=== PATIENT | male | born 1950 | race Caucasian/White ===

== ENCOUNTER 2023-05-06 21:49 | Emergency (ER) | payer MEDICARE ==
--- NOTE | 2023-05-06 22:15 | ED ---
Abdominal Pain HPI - General Source: RN notes reviewed <Matilde Lim - Last Filed: 05/06/23 22:14> <Shon Prater - Last Filed: 05/07/23 01:26> - General Stated Complaint: Gallbladder Pain Time Seen by Provider: 05/06/23 22:14 - History of Present Illness Initial Comments: Patient is 73-year-old male who presents the emergency department for abdominal pain. Patient reports pain in his right upper abdomen with radiation to the back. He feels nauseous and has had chills. Patient reports similar episode 5 years ago he thinks was related to his gallbladder but did not have medical e valuation (Matilde Lim) Review of Systems ROS Other: All systems not noted in ROS Statement are negative. <Matilde Lim - Last Filed: 05/06/23 22:14> ROS Other: All systems not noted in ROS Statement are negative. <Shon Prater - Last Filed: 05/07/23 01:26> ROS Statement: Those systems with pertinent positive or pertinent negative responses have been documented in the HPI. General Exam <Matilde Lim - Last Filed: 05/06/23 22:14> - General Exam Comments Initial Comments: Visual Physical Exam Vital signs reviewed General: Well-appearing, nontoxic, no acute distress. Head: Normocephalic, atraumatic Eyes: PERRLA, EOMI ENT: Airway patent Chest: Nonlabored breathing Skin: No visual rash, normal skin tone Neuro: Alert and oriented 3 Musculoskeletal: No gross abnormalities (Matilde Lim) Course Vital Signs 05/06/23 22:11 Temperature 98.7 F Pulse Rate 56 L Respiratory 18 Rate Blood Pressure 136/81 O2 Sat by Pulse 98 Oximetry Medical Decision Making <Matilde Lim - Last Filed: 05/06/23 22:14> - Lab Data Result diagrams: 05/06/23 23:58 05/06/23 23:58 <Shon Prater - Last Filed: 05/07/23 01:26> - Medical Decision Making I performed the QuickNote portion of this chart - Matilde Lim PA-C (Matilde Lim) - Lab Data Lab Results 05/06/23 05/06/23 05/06/23 Range/Units 23:58 23:58 23:58 WBC 10.0 (3.8-10.6) k/uL RBC 4.71 (4.30-5.90) m/uL Hgb 14.7 (13.0-17.5) gm/dL Hct 43.3 (39.0-53.0) % MCV 91.9 (80.0-100.0) fL MCH 31.1 (25.0-35.0) pg MCHC 33.9 (31.0-37.0) g/dL RDW 12.7 (11.5-15.5) % Plt Count 221 (150-450) k/uL MPV 8.2 Neutrophils % 72 % Lymphocytes % 18 % Monocytes % 6 % Eosinophils % 3 % Basophils % 1 % Neutrophils # 7.2 (1.3-7.7) k/uL Lymphocytes # 1.8 (1.0-4.8) k/uL Monocytes # 0.5 (0-1.0) k/uL Eosinophils # 0.3 (0-0.7) k/uL Basophils # 0.1 (0-0.2) k/uL Sodium 140 (137-145) mmol/L Potassium 4.0 (3.5-5.1) mmol/L Chloride 106 (98-107) mmol/L Carbon Dioxide 26 (22-30) mmol/L Anion Gap 8 mmol/L BUN 27 H (9-20) mg/dL Creatinine 1.13 (0.66-1.25) mg/dL Est GFR (CKD-EPI)AfAm 75 (>60 ml/min/1.73 sqM) Est GFR (CKD-EPI)NonAf 64 (>60 ml/min/1.73 sqM) Glucose 100 H (74-99) mg/dL Plasma Lactic Acid Aidan 0.6 L (0.7-2.0) mmol/L Calcium 9.3 (8.4-10.2) mg/dL Total Bilirubin 0.4 (0.2-1.3) mg/dL AST 26 (17-59) U/L ALT 24 (4-49) U/L Alkaline Phosphatase 52 (38-126) U/L Total Protein 7.2 (6.3-8.2) g/dL Albumin 4.0 (3.5-5.0) g/dL Lipase 97 (23-300) U/L Disposition <CarinaMatilde - Last Filed: 05/06/23 22:14> Is patient prescribed a controlled substance at d/c from ED?: No <Shon Prater - Last Filed: 05/07/23 01:26> Clinical Impression: Biliary colic Disposition: HOME SELF-CARE Condition: Good Instructions (If sedation given, give patient instructions): Biliary Colic (ED) Additional Instructions: We recommend that you follow-up to have a HIDA scan. Referrals: Nonstaff,Physician [Primary Care Provider] - 1-2 days Rey Otero MD [STAFF PHYSICIAN] - 1-2 days
[2023-05-06 22:26] VITALS: BP 136/81; PULSE 56; RESP 18; TEMP 98.7
--- NOTE | 2023-05-06 23:32 | US ---
EXAM: US Abdomen Complete CLINICAL HISTORY: US Reason: RUQ pain TECHNIQUE: Real-time ultrasound of the abdomen with image documentation. COMPARISON: No relevant prior studies available. FINDINGS: Liver: The liver measures 15.9 cm with normal echotexture. No liver mass lesion is seen. There is a 2.7 x 2.2 x 2.2 cm simple cyst centrally. No intrahepatic bile duct dilation. Gallbladder: The gallbladder is fully distended measuring 5 cm short axis diameter. No gallstones, wall thickening, or surrounding fluid is seen. Common bile duct: The common bile duct is nondilated measuring 4 mm. Pancreas: The visualized portion of the pancreas is unremarkable. Kidneys: The right kidney measures 12.1 cm. There is a 3.2 x 3 x 2.5 cm simple cyst in the upper pole the right kidney. No follow-up is required. No stones. No hydronephrosis. Spleen: Unremarkable. No splenomegaly. Aorta: Unremarkable. No abdominal aortic aneurysm. Inferior vena cava: Unremarkable. IMPRESSION: The gallbladder is fully distended measuring 5 cm short axis diameter. No gallstones, wall thickening, or surrounding fluid is seen. Questionably positive sonographic Palma sign according to the commission agent livestock.
[2023-05-07 00:11] LABS: Basophils # (A) 0.1 k/uL (0-0.2); Basophils % (A) 1 %; Eosinophils # (A) 0.3 k/uL (0-0.7); Eosinophils % (A) 3 %; HCT 43.3 % (39.0-53.0); HGB 14.7 gm/dL (13.0-17.5); Lymphocytes # (A) 1.8 k/uL (1.0-4.8); Lymphocytes % (A) 18 %; MCH 31.1 pg (25.0-35.0); MCHC 33.9 g/dL (31.0-37.0); MCV 91.9 fL (80.0-100.0); Mean Platelet Volume 8.2; Monocytes # (A) 0.5 k/uL (0-1.0); Monocytes % (A) 6 %; Neutrophils # (A) 7.2 k/uL (1.3-7.7); Neutrophils % (A) 72 %; Platelet Count 221 k/uL (150-450); RBC 4.71 m/uL (4.30-5.90); RDW 12.7 % (11.5-15.5)
[2023-05-07 00:25] LABS: ALT 24 U/L (4-49); AST 26 U/L (17-59); African American GFR (CKD) 75 (>60 ml/min/1.73 sqM); Alkaline Phosphatase 52 U/L (38-126); Anion Gap 8 mmol/L; Blood Urea Nitrogen 27 mg/dL (9-20); Calcium 9.3 mg/dL (8.4-10.2); Carbon Dioxide 26 mmol/L (22-30); Chloride 106 mmol/L (98-107); Glucose 100 mg/dL (74-99); Lipase 97 U/L (23-300); Non-African American GFR(CKD) 64 (>60 ml/min/1.73 sqM); Sodium 140 mmol/L (137-145); Total Bilirubin 0.4 mg/dL (0.2-1.3); Total Protein 7.2 g/dL (6.3-8.2)
== END 2023-05-07 01:49 | disposition home or self-care (01) ==
LOC: EC 21:49
DX: K80.51 Calculus of bile duct without cholangitis or cholecystitis with obstruction (principal)
CPT/HCPCS: 36415; 76705; 80053; 83605; 83690; 85025; 99284